=== PATIENT | female | born 1995 | race African-American/Black ===

== ENCOUNTER 2018-01-29 02:33 | Observation (INO) | payer MEDICAID ==
[~2018-01-29] VITALS: Ht 152.4 cm; Wt 59.0 kg
[2018-01-29] MEDS ORDERED: LACTATED RINGERS 1,000 ML IV SCH (03:00)
[2018-01-29] MEDS ORDERED: IRON-1 PO (03:03)
[2018-01-29] MEDS ORDERED: OCD PO (03:03)
[2018-01-29] MEDS ORDERED: PNV1TABL76 PO (03:03)
[2018-01-29] MEDS ORDERED: CEFAZOLIN 2,000 MG in DEXT 5% WATER 100 ML IV NR (04:00)
[2018-01-29 04:03] LABS: CLARITY URINE CLOUDY (CLEAR); COLOR URINE YELLOW (YELLOW); KETONES URINE NEGATIVE (NEGATIVE); LEUKOCYTE ESTERASE URINE 3+ (NEGATIVE); NITRITE URINE NEGATIVE (NEGATIVE); OCCULT BLOOD URINE NEGATIVE (NEGATIVE); PH URINE 7.5 (4.5-8.0); PROTEIN URINE NEGATIVE (NEGATIVE); SPECIFIC GRAVITY URINE 1.014 (1.005-1.030); UROBILINOGEN URINE 0.2 E.U./dL (0.2-1.0)
== END 2018-01-29 06:40 | disposition home or self-care (01) ==
LOC: L&D 02:33
PROVIDERS: ADMIT Obstetrics & Gynecology; ATTEND Obstetrics & Gynecology
DX: O26.893 Other specified pregnancy related conditions, third trimester (principal); R10.30 Lower abdominal pain, unspecified; R30.0 Dysuria; Z3A.32 32 weeks gestation of pregnancy
CPT/HCPCS: 81003; 96361; 96365; G0378; J0690; 96360; J7060